=== PATIENT | male | born 1970 | race Two or more races ===

== ENCOUNTER 2017-08-19 05:38 | Day surgery (SDC) | payer OTHER ==
[2017-08-19] MEDS ORDERED: MORPHINE SULFATE INJ 4 MG/ML DISP.SYRIN IV ONE (05:39)
[2017-08-19] MEDS ORDERED: CEFAZOLIN SODIUM/DEXTROSE,ISO 50 ML IV ONE (06:01)
[2017-08-19] MEDS ORDERED: FENTANYL PF 100MCG/2ML AMPUL ONE ×2 (10:55→11:13)
[2017-08-19] MEDS ORDERED: HYDROCODONE/APAP 5/325MG 1 EACH TABLET ONE (11:33)
[2017-08-19] MEDS ORDERED: KETOROLAC TROMETHAMINE INJ 30 MG/ML VIAL ONE (11:45)
== END 2017-08-19 12:30 | disposition home or self-care (01) ==
LOC: DS 05:38
PROVIDERS: ATTEND Specialist
DX: T84.84XA Pain due to internal orthopedic prosthetic devices, implants and grafts, initial encounter (principal); Y83.8 Other surgical procedures as the cause of abnormal reaction of the patient, or of later complication, without mention of misadventure at the time of the procedure; Y92.89 Other specified places as the place of occurrence of the external cause; Z98.890 Other specified postprocedural states
CPT/HCPCS: 88300-TC; A6253; A6402; J0690; J1885; J2270; J3010; J3490; Z7610